=== PATIENT | male | born 1950 | race Caucasian/White ===

== ENCOUNTER 2016-09-27 09:56 | Emergency (ER) | payer MEDICARE, BC | END 2016-09-27 14:10 | disposition left against medical advice (07) | LOC: UCEAST 09:56 | DX: J02.9 Acute pharyngitis, unspecified (principal); Z53.21 Procedure and treatment not carried out due to patient leaving prior to being seen by health care provider ==

== ENCOUNTER 2019-01-14 07:10 | Inpatient (IN) | payer MEDICARE, BC ==
--- NOTE | 2018-12-30 14:02 | HP ---
HISTORY AND PHYSICAL: DATE OF ADMISSION: 01/14/19 PROVIDER: Dr. Riya Gillette.* (DICTATED BY TEJA ROBISON) HISTORY OF PRESENT ILLNESS: Mr. Faria is a 68-year-old gentleman with over 1 year of increasingly severe bilateral hip pain, right greater than left. His right hip aches 6/10 at its worse. He states that the pain is increased with activity, hiking, biking, prolonged sitting, and driving. Pain is located in the groin, sometimes in the thigh. He has attempted rest, naproxen, and home exercise program without relief. PAST MEDICAL HISTORY: 1. Osteoarthritis. 2. TIA. 3. GERD. 4. Occasional PVCs. PAST SURGICAL HISTORY: None. MEDICATIONS: 1. Viagra 100 mg, take half a tab by mouth 1 hour before intercourse. 2. Omeprazole 20 mg 1 by mouth every day. 3. Aspirin enteric-coated low dose 81 mg 1 by mouth every day. 4. Multivitamin for Him. 5. Probiotic. ALLERGIES: No known drug allergies. FAMILY HISTORY: Diabetes, heart disease, hypertension, stroke, and cancer. SOCIAL HISTORY: The patient lives with his life. He is a retired professor of electrical engineering. No tobacco use, although he does smoke 1 cigar per week. He smokes a minimal amount of marijuana. He drinks about 15 to 20 drinks per week, usually 12-ounce beers. He is normally very active with hiking, camping, swimming, and mountain biking. He is right hand dominant. REVIEW OF SYSTEMS: General: The patient denies any fevers, chills, or night sweats. No known anesthesia problems. HEENT: Denies any headache, lightheadedness, or syncopal episodes. Cardiothoracic: Denies any chest pain, heart palpitations, or edema. Pulmonary: Denies any shortness of breath with exertion, chronic cough. GI: Denies any nausea, vomiting, diarrhea, or constipation. : Denies any nocturia, urinary frequency or urgency. MSK: Admits to bilateral hip pain. Denies any back pain or fractures. Neuro: Denies any paresthesias, numbness, seizures. Integument: Denies any abrasions , lesions, rashes, lumps, or open sores. PHYSICAL EXAMINATION GENERAL: The patient is alert and oriented x3 with appropriate mood and affect , appropriately dress and hygiene. He has an antalgic gait. HEENT: Normocephalic atraumatic. Hearing and vision are grossly intact. PULMONARY: Lungs are clear to auscultation bilaterally with no wheezes, rales, or rhonchi. CARDIO: Regular rate and rhythm. Normal S1 and S2. No appreciable S3 or S4. No murmurs, rubs, or gallops. MSK: Right lower extremity, right hip: Inspection of the right hip reveals no erythema or ecchymosis. Skin is warm, dry, and intact. Flexion of the hip to 85 degrees. He lacks 10 degrees from full neutral and has no internal rotation. He has 30 degrees of external rotation with some groin pain. He has 5/5 dorsiflexion and plantar flexion strength. Full sensation is intact to light touch distally with 2+ dorsalis pedis pulse. IMPRESSION: Severe end-stage right hip osteoarthritis. PLAN: To the OR for a right total hip arthroplasty to be performed by Dr. Riya Gillette on 01/14/19. The patient will follow up 10 to 14 days postop for suture removal. The risks and complications were reviewed with the patient and a signed consent was obtained and will be available on his chart. TEJA ROBISON [id number]/CPS #: [id number] MTDD
[~2019-01-14 07:10] MED LIST: Buffered Lidocaine 1% SYRIN* 1 ML/SYRINGE INTRADERM ONE; Famotidine IV* 10 MG/ML 2 ML (20 mg) IV ONE; Lactated Ringers 1000 ML Bag* 1,000 ML IV SCH
--- OUTSIDE RECORDS SUMMARY | 2019-01-14 07:14 | XMS REPORT | Continuity of Care Document ---
:1950 External Reference #:[id number] Author Name Riya Gillette M.D. (transmitted by agent of provider Manju Osborn) Address [address] [place] [address] Care Team Providers Name Role Phone Mk Mckee III, MD - Internal Care Team Information Cafe Assistant [phone] Medicine [facility] - Care Team Information Cafe Assistant [phone] Lens Edger Aiden Chan M.D. - Neurology Care Team Information Cafe Assistant Problems Active Problems Provider Date Localized, primary osteoarthritis of the pelvic Riya Gillette M.D. Onset: 02/2019 region and thigh Social History Type Date Description Comments Sex Unknown ETOH Use Occasionally consumes alcohol Tobacco Use Start: Unknown Patient has never smoked Smoking Status Reviewed: 12/23/18 Patient has never smoked Exercise Exercises regularly hikes, mountain Type/Frequency bikes Allergies, Adverse Reactions, Alerts Description No Known Drug Allergies Medications Active Medications SIG Qnty Indications Ordering Date Provider Naproxen 1 tablet with food 90tabs M25.551 Riya Gillette, 10/14/2018 500mg by mouth twice a M.D. Tablets day Viagra take a half tab,by 25tabs Mk Carlos 03/27/2018 100mg Tablets mouth 1h before Steffanie Mckee intercourse Omeprazole 1 by mouth every 90caps Mk Carlos 02/05/2018 20mg day Steffanie Mckee Capsules Aspirin Ec Low Dose 1 by mouth every Unknown day 81mg Tablets Probiotic 1 by mouth every Unknown Acidophilus day Capsules Multi For Him 50+ once a day Unknown Tablets Benefiber 2 teaspoons 2 times Unknown Powder per day Naproxen Sodium take 1 tab twice a Unknown 220mg day as needed for Capsules pain take with food Immunizations CPT Code Status Date Vaccine Reaction Lot # [id number] Given 09/24/2018 Hepatitis A Vaccine Adult Patient tolerated [id number] Dosage injection w/ no complaint of pain and no immediate adverse reaction. [id number] Given 02/28/2018 Fluzone High Dose 63320 Given 10/09/2017 Typhoid Vaccine [id number] 60391 Given 10/09/2017 Hepatitis A Vaccine Adult [id number] Dosage 73411 Given 11/24/2016 Pneumococcal Conjugate [id number] Vaccine 13 Valent For Intramuscular Use 23993 Given 05/03/2016 Tdap - Tetanus/Diptheria/Acellular Pertussis 23247 Given 08/17/2014 Pneumonia Vaccine 52261 Given Unknown Zoster (Zostavax) Vital Signs Date Vital Result Comment 12/23/2018 8:04am Height 72.5 inches 6'0.50" Weight 189.00 lb Heart Rate 56 /min BP Systolic 128 mmHg BP Diastolic 82 mmHg Respiratory Rate 15 /min Body Temperature 96.9 F Pain Level 4 BMI (Body Mass Index) 25.3 kg/m2 12/11/2018 9:56am Height 72.5 inches 6'0.50" Weight 187.00 lb Heart Rate 62 /min BP Systolic 126 mmHg BP Diastolic 74 mmHg BMI (Body Mass Index) 25.0 kg/m2 Results Test Date Facility Test Result H/L Range Note Lipid Profile 12/11/2018 [facility] [place] Triglycerides 139 mg/dL 1 (Trig/Chol/HDL) [address] [place] [address] [phone] Cholesterol 183 mg/dL 2 HDL Cholesterol 43.0 mg/dL 3 LDL Cholesterol 112 mg/dL 4 Laboratory test 12/11/2018 [facility] [place] PSA Screening 1.266 Normal 0-4.000 5 finding 101 ng/[place] [address] [phone] Hepatitis C 12/11/2018 [facility] [place] HCV Index 0.07 s/c Antibody [address] [place] [address] [phone] Hepatitis C Antibody Negative Negative CBC Auto 10/21/2018 [facility] [place] White Blood 8.2 10^3/uL Normal 3.5-10.[address] [place] [address] [phone] Red Blood Count 4.48 10^6/uL Normal 4.18-5.48 Hemoglobin 14.1 g/dL Normal 14.0-18.0 Hematocrit 42 % Normal 42-52 Mean Corpuscular Volume 94 fL Normal 80-94 Mean Corpuscular Hemoglobin 32 pg High 27-31 Mean Corpuscular HGB Conc 34 g/dL Normal 31-36 Red Cell Distribution Width 14 % Normal 10-15 Platelet Count 204 10^3/uL Normal 150-450 Mean Platelet Volume 8.6 fL Normal 7.4-10.4 Abs Neutrophils 5.1 10^3/uL Normal 1.5-7.7 Abs Lymphocytes 2.2 10^3/uL Normal 1.0-4.8 Abs Monocytes 0.7 10^3/uL Normal 0-0.8 Abs Eosinophils 0.2 10^3/uL Normal 0-0.6 Abs Basophils 0.0 10^3/uL Normal 0-0.2 Abs Nucleated RBC 0.0 10^3/uL Granulocyte % 61.4 % Lymphocyte % 27.1 % Monocyte % 8.2 % Eosinophil % 2.7 % Basophil % 0.6 % Nucleated Red Blood Cells % 0.0 Comp Metabolic 10/21/2018 [facility] [place] Sodium 142 mmol/L Normal 135-[address] [place] [address] [phone] Potassium 4.0 mmol/L Normal 3.5-5.0 Chloride 108 mmol/L Normal 101-111 Co2 Carbon Dioxide 26 mmol/L Normal 22-32 Anion Gap 8 mmol/L Normal 2-11 Glucose 97 mg/dL Normal 70-100 Blood Urea Nitrogen 16 mg/dL Normal 6-24 Creatinine 1.03 mg/dL Normal 0.67-1.17 BUN/Creatinine Ratio 15.5 Normal 8-20 Calcium 9.5 mg/dL Normal 8.6-10.3 Total Protein 7.2 g/dL Normal 6.4-8.9 Albumin 4.2 g/dL Normal 3.2-5.2 Globulin 3.0 g/dL Normal 2-4 Albumin/Globulin Ratio 1.4 Normal 1-3 Total Bilirubin 0.50 mg/dL Normal 0.2-1.0 Alkaline Phosphatase 66 U/L Normal 34-104 Alt 20 U/L Normal 7-52 Ast 21 U/L Normal 13-39 Egfr Non- 71.6 >60 Egfr 86.6 >60 6 Laboratory 10/21/2018 [facility] [place] TSH (Thyroid 5.01 Normal 0.34 -5.60 7 test finding [address] Stim Horm) mcIU/[place] [address] [phone] Vitamin B12 315 pg/mL Normal 180-914 8 Folic Acid (Folate) > 20.00 ng/mL >3.99 9 1 Desirable: <150 Borderline High: 150-199 High: 200-499 Very High: >500 2 Desirable: <200 Borderline High: 200-239 High: >239 3 Low: <40 Desirable: 40-60 High: >60 4 Desirable: <100 Near Optimal: 100-129 Borderline High: 130-159 High: 160-189 Very High: >189 5 Serum levels of PSA measured using the Khris Hymite DXI Hybritech immunoassay should not be interpreted as absolute evidence of the presence or absence of disease. The PSA value should be used in conjunction with other pertinent clinical diagnostic procedures. The values obtained with different assay methods or kits cannot be used interchangeably. 6 Because ethnic data is not always readily available, this report includes an eGFR for both -Americans and non- Americans. The National Kidney Disease Education Program (NKDEP) does not endorse the use of the MDRD equation for patients that are not between the ages of 18 and 70, are , have extremes of body size, muscle mass, or nutritional status, or are non- or non-. According to the National Kidney Foundation, irrespective of diagnosis, the stage of the disease is based on the level of kidney function: Stage Description GFR(mL/min/1.73 m(2)) 1 Kidney damage with normal or decreased GFR 90 2 Kidney damage with mild decrease in GFR 60-89 3 Moderate decrease in GFR 30-59 4 Severe decrease in GFR 15-29 5 Kidney failure <15 (or dialysis) 7 Copy Result to: MK MCKEE ([id number]) 8 Normal Range 180 to 914 Indeterminate Range 145 to 180 Deficient Range <145 9 Copy Result to: MK MCKEE ([id number]) Procedures Description No Information Available Medical Devices Description No Information Available Encounters Type Date Location Provider Dx Diagnosis Office Visit 10/21/2018 [facility] V[facility] Larios, G31.84 Mild cognitive 3:00p [facility] MD impairment, so stated Office Visit 10/14/2018 Orth[facility] Riya Gillette, M25.551 Pain in right hip 8:00a [facility] M16.11 Unilateral primary osteoarthritis, right hip Assessments Date Code Description Provider 12/11/2018 G31.84 Mild cognitive impairment, so stated Vitor Larios MD 12/05/2018 Z01.818 Encounter for other preprocedural examination Leland Carter MD 12/05/2018 M16.11 Unilateral primary osteoarthritis, right hip Leland Carter MD 12/05/2018 Z12.5 Encounter for screening for malignant neoplasm Leland Carter MD of prostate 12/05/2018 Z13.220 Encounter for screening for lipoid disorders Leland Carter MD 12/05/2018 Z11.59 Encounter for screening for other viral Leland Carter MD diseases 12/05/2018 Z00.00 Encounter for general adult medical examination Leland Carter MD without abnormal findings 10/21/2018 G31.84 Mild cognitive impairment, so stated Vitor Larios MD 10/17/2018 M25.551 Pain in right hip Riya Gillette M.D. 10/17/2018 M16.11 Unilateral primary osteoarthritis, right hip Riya Gillette M.D. 10/14/2018 M25.551 Pain in right hip Riya Gillette M.D. 10/14/2018 M16.11 Unilateral primary osteoarthritis, right hip Riya Gillette M.D. 09/24/2018 Z23 Encounter for immunization Nurse Visit Id Plan of Treatment Future Appointment(s):01/24/2019 8:00 am - [facility]/26[facility]2019 9:15 am - Vitor Larios MD at [facility]12/08/2019 9:20 am - Mk Mckee M.D. at [facility] Internal Medicine - [facility]01/14/2019 9:30 am - Ri[facility] M.D. at [facility] Functional Status Description No Information Available Mental Status Description No Information Available Referrals Description No Information Available
[2019-01-14] MEDS ORDERED: Buffered Lidocaine 1% SYRIN* 1 ML/SYRINGE INTRADERM ONE (08:04)
[2019-01-14] MEDS ORDERED: Famotidine IV* 10 MG/ML 2 ML (20 mg) ONE (08:04)
[2019-01-14] MEDS ORDERED: ceFAZolin 2 GM in NS PREMIX(*) 2 GM/100 ML BAG IVPB ONE (08:04)
[2019-01-14] MEDS ORDERED: fentaNYL* 50 MCG/ML 2 ML VIAL (100 MCG VIAL) ONE (08:14)
[2019-01-14] MEDS ORDERED: Midazolam* 1 MG/ML 5 ML VIAL (5 MG) ONE (08:15)
[2019-01-14] MEDS ORDERED: KETAMINE HCL* 50 MG/ML 10 ML VIAL ONE (10:11)
[2019-01-14] MEDS ORDERED: Ketorolac INJ* 30 MG/ML 1 ML VIAL ONE (10:44)
[2019-01-14] MEDS ORDERED: Ondansetron INJ* 2 MG/ML VIAL ONE (10:44)
[2019-01-14] MEDS ORDERED: DiMENhydriNATE IV* 50 MG/ML VIAL ONE (10:44)
[2019-01-14] MEDS ORDERED: Propofol* 10 MG/ML 20 ML BTL ONE (10:44)
[2019-01-14] MEDS ORDERED: Naloxone* 0.4 MG/ML 1 ML VIAL IV PRN (11:29)
[2019-01-14] MEDS ORDERED: Acetaminophen IV 1GM/100ML * 1,000 MG/100 ML VIAL IVPB ONE (11:29)
[2019-01-14] MEDS ORDERED: oxyCODONE TAB* 5 MG TAB PO PRN (11:29)
[2019-01-14] MEDS ORDERED: DiMENhydriNATE IV* 50 MG/ML VIAL IV PUSH PRN (11:29)
[2019-01-14] MEDS ORDERED: diPHENhydraMINE PO* 25 MG PO PRN (12:24)
[2019-01-14] MEDS ORDERED: Ondansetron ODT TAB* 4 MG PO PRN (12:24)
[2019-01-14] MEDS ORDERED: Morphine INJ* 10 MG/ML 1 ML CARPUJECT IV PRN (12:24)
[2019-01-14] MEDS ORDERED: Ondansetron INJ* 2 MG/ML VIAL IV PRN (12:24)
[2019-01-14] MEDS ORDERED: Magnesium Hydroxide LIQ* 30 ML UDC PO PRN (12:24)
[2019-01-14] MEDS ORDERED: Temazepam CAP* 15 MG PO PRN (12:24)
[2019-01-14] MEDS ORDERED: Polyethylene Glycol 3350* 17 GM PACKET PO PRN (12:24)
[2019-01-14] MEDS ORDERED: oxyCODONE/Acetamin 5/325 MG* TAB PO PRN (12:24)
[2019-01-14] MEDS ORDERED: Cyclobenzaprine TAB* 10 MG PO PRN (12:24)
[2019-01-14] MEDS ORDERED: diPHENhydraMINE IV* 50 MG/ML 1 ml VIAL (BENADRYL) IV PRN (12:24)
[2019-01-14] MEDS ORDERED: Acetaminophen IV 1GM/100ML * 100 ML ONE (12:46)
[2019-01-14] MEDS ORDERED: Morphine 4 MG/ML VIAL (1 ml) 4 MG/ML VIAL ONE (12:46)
[2019-01-14] MEDS ORDERED: traMADol TAB* 50 MG PO SCH (13:00)
[2019-01-14] MEDS ORDERED: Acetaminophen TAB* 325 MG PO SCH (13:00)
[2019-01-14] MEDS ORDERED: HYDROmorphone INJ1* 1 MG/ML SYRINGE ONE (13:16)
[2019-01-14] MEDS: HYDROmorphone INJ1* 1 MG/ML SYRINGE IV PRN ×3 (13:17→14:00)
[2019-01-14] MEDS ORDERED: traMADol TAB* 50 MG ONE (13:17)
[2019-01-14] MEDS ORDERED: oxyCODONE/Acetamin 5/325 MG* TAB ONE (13:42)
[2019-01-14] MEDS: oxyCODONE/Acetamin 5/325 MG* TAB PO PRN ×3 (13:43→21:44)
[2019-01-14] MEDS: Lactated Ringers 1000 ML Bag* 1,000 ML IV SCH ×2 (14:27→23:56)
[2019-01-14] MEDS ORDERED: Morphine INJ* 2 MG/ML 1 ML SYRINGE (TWO MG - NEW SYRINGE VERSION) IV PRN (15:05)
--- NOTE | 2019-01-14 17:19 | PN ---
Progress Note - Progress Note Date of Service: 01/14/19 - Post-op Note: Post-op check: Patient resting comfortably in joint chair. He has been OOB to bathroom and felt a little nauseous, which improved once he sat down. His pain is controlled with percocet. He denies SOB, CP or calf pain. He DF/PF right ankle, intact sensation and 2+ DP pulse. We will continue to monitor and may d/ c tomorrow. Continue PT and pain management.
[2019-01-14] MEDS: ceFAZolin 1 GM ADVAN(*) 1 GM in NS 0.9% 50 ML* 50 ML IVPB SCH (17:51)
[2019-01-14] MEDS: Docusate CAP* 100 MG PO SCH (20:27)
[2019-01-14] MEDS: Acetaminophen TAB* 325 MG PO SCH ×2 (20:27→21:00)
[2019-01-14] MEDS: Magnesium Hydroxide LIQ* 30 ML UDC PO SCH (20:27)
[2019-01-14] MEDS: traMADol TAB* 50 MG PO SCH (20:28)
--- NOTE | 2019-01-14 21:33 | OP ---
Operative Report - Blank - Operative Report Date of Operation: 01/14/19 Note: VI CACERES 1950 Date Of Surgery: 01/14/19 Riya Gillette MD [employer] Apprentice: Josefa LEZAMA did help throughout the procedure with preparation of the hip, wound retraction, manipulation of the hip, and wound closure. Anesthesiologist: Josefa Finley MD Anesthesia Type: Spinal Preoperative Diagnosis: Right severe degenerative osteoarthritis of the hip Postoperative Diagnosis: As above Procedure Performed: Right Total Hip Arthroplasty Complications: None Specimen: Femoral head and acetabular reamings sent to pathology. Hardware used: This is uncemented [place] total hip arthroplasty hardware for the femur a size 5 accolade II with 127 degree neck femoral component, for the acetabulum a size 56F trident II tritanium cluster hole shell with a 15 mm screw, for the insert a size 40 F trident X3 polyethylene insert, and for the femoral head a size 40 + 4 LFIT anatomic V40 femoral head. Brief history/Indication: VI CACERES was known in clinic and had a history of severe right hip pain. He failed conservative treatment with anti- inflammatories, pain pills, intra-articular injections and physical therapy. He elected to undergo right total hip arthroplasty due to continued pain and decreased quality of life. Radiographs showed severe end stage osteoarthritis of the hip with bone on bone contact. Informed consent was obtained from the patient. He understood the risks of surgery included but were not limited to: bleeding, infection, damage to nearby structures, intraoperative fracture, nerve palsy, failure of the hardware, early loosening, stiffness or loss of motion, dislocation, leg length discrepancy, anesthesia complications, stroke, heart attack, blood clot and . He wished to proceed. Intra-Operative findings: Intraoperatively the patient was noted to have severe loss of cartilage of the acetabulum and femoral head. Description of the Procedure: VI CACERES was identified in the preanesthesia unit. His right hip was marked as the correct operative side. Informed consent was signed and placed in the chart. The patient was taken to the operating room and placed under anesthesia without complication. A katz catheter was placed. The patient was placed on the peg board with all bony prominences well padded. The right lower extremity was prepped and draped in the usual sterile fashion. Preoperative time -out was made to correctly identify the patient, side and site. Appropriate intraoperative antibiotics were given within one hour of incision. A standard posterior incision was made and carried sharply down to the lateral fascia. A new 10 blade was used to make an incision in the fascia in line with the skin incision. A charnley retractor was placed. The piriformis and conjoined tendons were identified and elevated off the posterolateral femur using electrocautery. These were tagged with number 5 Ethibond. Next electrocautery was used to make a posterolateral capsular flap and this was tagged with number 5 Ethibonds. The hip was carefully dislocated. Lesser trochanter to the center of the femoral head was measured at 55 mm. The oscillating saw was used to make the femoral neck cut. The femoral head was carefully removed. The femur was retracted anteriorly and the acetabular retractors were placed. Long-handled knife was used to sharply remove any remaining labrum from the acetabular rim. The acetabulum was sequentially reamed up to a size 56. A bleeding subchondral bone bed was obtained. A trial liner was placed and had excellent fit and stability. A 56F trident II tritanium cup with a 15 mm screw was placed and had excellent stability with appropriate anteversion and abduction angle. A size 40 F trident X 3 polyethylene liner was impacted into the acetabular shell. The liner was checked for stability and was stable. Next attention was turned to preparation of the femoral canal. A canal finder was used to enter the proximal femur. The femoral canal was sequentially broached up to a size 5 femoral broach trial. A trial neck and 40 + 4 trial femoral head was chosen. Lesser trochanter to center of the femoral head measurement was satisfactory. The hip was reduced and taken through a range of motion. The hip was stable in all positions with good soft tissue tension and appropriate leg lengths. The hip was dislocated and all trials were removed. The final implant chosen was a accolade II size 5. This stem was impacted into the femoral canal without difficulty. The stem was stable with appropriate anteversion. The femoral head chosen was a 40 + 4 metal head. The head was impacted onto the femoral neck without difficulty. The final lesser trochanter to center of the femoral head measurement was satisfactory. The hip was reduced and taken through a range of motion. The hip was stable in all positions with good soft tissue tension and appropriate leg lengths. The hip was copiously irrigated with sterile saline. The previously tagged capsule and tendons were repaired to the posterolateral femur through two trochanteric drill holes. The lateral fascia layer was closed using number 1 vicryls. The rest of the incision was closed in a layered fashion using 0 and 2-0 vicryls. The skin was closed using 3-0 monocryl suture and Dermabond. Sterile adaptic, 4x4s and paper tape was used to cover the incision. The patients anesthesia was reversed without difficulty. He was taken to the PACU in stable condition. Intended weight-bearing will be as tolerated with posterior hip precautions.
[2019-01-14] MEDS: oxyCODONE TAB* 5 MG TAB PO PRN (23:48)
[2019-01-15] MEDS: traMADol TAB* 50 MG PO SCH ×4 (01:27→21:38)
[2019-01-15] MEDS: ceFAZolin 1 GM ADVAN(*) 1 GM in NS 0.9% 50 ML* 50 ML IVPB SCH ×2 (01:28→10:27)
[2019-01-15] MEDS: Acetaminophen TAB* 325 MG PO SCH ×3 (04:26→21:01)
[2019-01-15 05:43] LABS: Hematocrit 35 % (42-52); Hemoglobin 12.4 g/dL (14.0-18.0); Mean Platelet Volume 7.8 fL (7.4-10.4); Platelet Count 177 10^3/uL (150-450)
[2019-01-15 06:12] LABS: BUN/Creatinine Ratio 13.4 (8-20); Calcium 8.3 mg/dL (8.6-10.3); EGFR African American 92.9 (>60); EGFR Non-African American 76.7 (>60)
[2019-01-15] MEDS: oxyCODONE TAB* 5 MG TAB PO PRN ×4 (06:16→21:37)
[2019-01-15] MEDS: Vitamin THERAPEUTIC TAB PO SCH (08:39)
[2019-01-15] MEDS: Lactobacillus Acidophilus* 1 TAB PO SCH (08:39)
[2019-01-15] MEDS: Pantoprazole TAB * 40 MG TAB PO SCH (08:39)
[2019-01-15] MEDS: Docusate CAP* 100 MG PO SCH ×2 (08:39→21:01)
[2019-01-15] MEDS: Apixaban* 2.5 MG TAB PO SCH ×2 (08:39→21:01)
[2019-01-15] MEDS: Magnesium Hydroxide LIQ* 30 ML UDC PO SCH ×2 (08:39→21:01)
[2019-01-15] MEDS: Lactated Ringers 1000 ML Bag* 1,000 ML IV SCH (10:27)
--- NOTE | 2019-01-15 13:47 | PN ---
Progress Note - Progress Note Date of Service: 01/15/19 SOAP: Subjective: []Pt seen and examined at bedside. He has no complaints at this time, hip was quite painful overnight which is now tolerable. Denies CP, SOB, dizziness, nausea. Has a hx TIA for which he takes ASA 81 mg qd. Objective: []Gen: Appears well, NAD RLE: Right hip dressing CDI, thigh soft, DF/PF intact, DP2+, sensation intact to light touch distally Calves supple and nontender without erythema, edema or palpable cords Assessment: []POD 1 sp RTH Plan: []WBAT PT/OT Posterior hip precautions Anticipate DC to home tomorrow with outpt services Okay to restart aspirin 81 mg qd Vital Signs Temp 99.7 F 01/15/19 11:53 Pulse 62 01/15/19 11:53 Resp 16 01/15/19 13:10 BP 114/59 01/15/19 11:53 Pulse Ox 99 01/15/19 11:53 Intake & Output 01/14/19 01/15/19 01/15/19 18:59 06:59 18:59 Intake Total 1999 1520 1695 Output Total 725 1250 450 Balance 6308 629 0008 Weight 187 lb Intake: IV Fluids 1999 970 980 LR 970 980 lr 1999 IVPB 50 55 ABX - CEFAZOLIN 50 55 Oral 500 660 Output: Urine 450 [place] 725 1250 Other: # Bowel Movements 0 Laboratory Last Values Hgb 12.4 g/dL (14.0-18.0) L 01/15/19 05:24 Hct 35 % (42-52) L 01/15/19 05:24 Plt Count 177 10^3/uL (150-450) 01/15/19 05:24 MPV 7.8 fL (7.4-10.4) 01/15/19 05:24 Sodium 138 mmol/L (135-145) 01/15/19 05:24 Potassium 4.0 mmol/L (3.5-5.0) 01/15/19 05:24 Chloride 107 mmol/L (101-111) 01/15/19 05:24 Carbon Dioxide 28 mmol/L (22-32) 01/15/19 05:24 Anion Gap 3 mmol/L (2-11) 01/15/19 05:24 BUN 13 mg/dL (6-24) 01/15/19 05:24 Creatinine 0.97 mg/dL (0.67-1.17) 01/15/19 05:24 Est GFR ( Amer) 92.9 (>60) 01/15/19 05:24 Est GFR (Non-Af Amer) 76.7 (>60) 01/15/19 05:24 BUN/Creatinine Ratio 13.4 (8-20) 01/15/19 05:24 Glucose 142 mg/dL (70-100) H 01/15/19 05:24 Calcium 8.3 mg/dL (8.6-10.3) L 01/15/19 05:24
[2019-01-15] MEDS: Aspirin 81 mg CHEW TAB* 81 MG TAB.CHEW PO SCH (17:23)
[2019-01-16] MEDS: traMADol TAB* 50 MG PO SCH ×3 (01:30→12:52)
[2019-01-16 07:09] LABS: Hematocrit 34 % (42-52); Hemoglobin 11.8 g/dL (14.0-18.0); Mean Platelet Volume 7.6 fL (7.4-10.4); Platelet Count 177 10^3/uL (150-450)
[2019-01-16] MEDS: Aspirin 81 mg CHEW TAB* 81 MG TAB.CHEW PO SCH ×2 (07:57→09:19)
[2019-01-16] MEDS: Vitamin THERAPEUTIC TAB PO SCH (07:59)
[2019-01-16] MEDS ORDERED: Calcium Carbonate CHEW TAB* 500 MG (TUMS) PO SCH (09:00)
[2019-01-16] MEDS ORDERED: Influenza VAC *QUAD* 2019-20* 0.5 ML SYRINGE IM ONE (09:00)
[2019-01-16] MEDS ORDERED: Pneumococcal *Vac Polyvalent 0.5 ML VIAL IM ONE (09:00)
[2019-01-16] MEDS: Acetaminophen TAB* 325 MG PO SCH ×2 (09:16→12:52)
[2019-01-16] MEDS: Apixaban* 2.5 MG TAB PO SCH (09:17)
[2019-01-16] MEDS: Magnesium Hydroxide LIQ* 30 ML UDC PO SCH (09:17)
[2019-01-16] MEDS: Lactobacillus Acidophilus* 1 TAB PO SCH (09:18)
[2019-01-16] MEDS: Docusate CAP* 100 MG PO SCH (09:18)
[2019-01-16] MEDS: Pantoprazole TAB * 40 MG TAB PO SCH (09:18)
[2019-01-16 12:14] VITALS: BP 120/67
[2019-01-16] MEDS ORDERED: Bisacodyl SUPP* 10 MG SUPP PR PRN (12:24)
--- NOTE | 2019-01-16 13:11 | DS ---
Orthopedic Discharge Summary - Discharge Summary Date of Admission:01/14/19 Date of Discharge: 01/16/2019 Date of Surgery: 01/14/2019 Attending Orthopedic Provider: Dr. Gillette Pre-operative Diagnosis: Right hip osteoarthritis Operative Procedure: Right total hip arthroplasty Disposition of Patient: Home Condition of Patient: Good History: VI CACERES is a 68 year old M with years of increasingly severe right hip pain. Patient has failed conservative management and has elected to undergo a right total hip replacement Hospital Course: VI was admitted to [facility] on 01/14/19. Patient underwent a right total hip arthroplasty without complication followed by a brief recovery in PACU and transfer to the Short Stay Surgical Unit in stable condition. Our hospitalist service, physical therapy and occupational therapy also participated in this patients care. Post-op day 1: patient was alert and in no acute distress. Dressing was clean, dry and intact. Operative extremity dorsiflexion and plantarflexion intact, sensation intact to light touch distally, DP2+. Post-op day two: dressing was changed, incision was clean , dry and intact. Patient was deemed to be medically and orthopedically stable for discharge. Physical therapy goals were met. Home Medications Medication Instructions Recorded Confirmed Type Aspirin Aspirin Adult Low Dose 81 mg PO QAM 03/25/15 01/14/19 History Calcium Polycarbophil [Fiber Tabs] 625 mg PO QAM 01/03/19 01/14/19 History Multivitamin [Multivitamins] 1 cap PO QAM 01/03/19 01/14/19 History Naproxen [Naproxen 250 mg tab] 220 mg PO QAM 01/03/19 01/14/19 History Omeprazole CAP (NF) [Prilosec CAP* 20 mg PO QAM 01/03/19 01/14/19 History 20 MG] Saccharomyces Boulardii [Probiotic] 1 cap PO QAM 01/03/19 01/14/19 History Discharge Instructions following Orthopedic Surgery: Activity: * Weight Bearing as tolerated * Continue physical therapy and occupational therapy exercises as shown Wound care: * OK to shower on post-op day 3, no bathing, swimming, or submerging wound. * Use gentle soap, pat dry. Cover with gauze, HORTENSIA wrap or tape. * Visiting home nurse to do wound checks. Call Orthopedic office for: * Increased drainage * Redness * Increased pain * Fever Go to ER with shortness of breath or chest pain. Diet: * Regular diet * Increase fluids and fiber to prevent constipation. * Continue to use stool softeners, call office if no bowel motion within 48 hours. Medications See Home Medication List in your packet for medications that you should take after discharge. DVT Prophylaxis: Eliquis Dosin.5 mg, 1 tab every 12 hours x 30 days Pain Control: Percocet Dosin/325 mg 1-2 tabs by mouth every 4-6 hours as needed for pain. Maximum of 10 tabs per day. Please note that Percocet contains Tylenol (acetaminophen). Maximum daily dose of Tylenol is 4000 mg from all sources. Antibiotics are required prior to any dental work. FOLLOW UP: Follow up with [WILLY] Within 10-14 days, call for appointment Please call our office with any questions or concerns ([phone])
== END 2019-01-16 15:10 | disposition home health service (06) | DRG 470 ==
LOC: AA 07:10 → SSU 12:24
PROVIDERS: ADMIT Orthopaedic Surgery Adult Reconstructive Orthopaedic Surgery; ATTEND Orthopaedic Surgery Adult Reconstructive Orthopaedic Surgery
PROC: 0SR902A Replacement of Right Hip Joint with Metal on Polyethylene Synthetic Substitute, Uncemented, Open Approach (ICD-10-PCS; principal; 2019-01-14 10:00)
DX: M16.11 Unilateral primary osteoarthritis, right hip (principal); K21.9 Gastro-esophageal reflux disease without esophagitis; K59.09 Other constipation; R11.0 Nausea; Z79.82 Long term (current) use of aspirin; Z86.73 Personal history of transient ischemic attack (TIA), and cerebral infarction without residual deficits; Z83.3 Family history of diabetes mellitus; Z82.49 Family history of ischemic heart disease and other diseases of the circulatory system; Z80.9 Family history of malignant neoplasm, unspecified; Z82.3 Family history of stroke; Z72.89 Other problems related to lifestyle; Z72.0 Tobacco use
CPT/HCPCS: 36415; 80048; 85014; 85018; 85049; 88304; 88311; 90686; 90732; A9270-GY; C1713; C1776; G8978-GP-CK; G8979-GP-CI; G8987-GO-CI; G8988-GO-CI; G8989-GO-CI; J0690; J1170; J1240; J1885; J2250; J2270; J2405; J2704; J3010